=== PATIENT | male | born 1995 | race Caucasian/White ===

== ENCOUNTER 2022-12-17 17:10 | Inpatient (IN) | payer OTHER ==
[~2022-12-17] VITALS: Ht 172.7 cm; Wt 90.7 kg
[2022-12-17 17:37] VITALS: BP 160/84
[2022-12-17 18:18] LABS: BASOPHILS # (AUTO) 0.1 K/uL (0.00-0.22); BASOPHILS % (AUTO) 0.4 % (0.0-2.0); HEMATOCRIT 46.3 % (36-52); HEMOGLOBIN 15.7 g/dL (12.0-18.0); LYMPHOCYTES # (AUTO) 1.8 K/uL (2.0-11.5); LYMPHOCYTES % (AUTO) 8.2 % (20.5-51.1); MEAN CORPUSCULAR HEMOGLOBIN 30 pg (27-31); MEAN CORPUSCULAR HGB CONC 34 g/dL (33-37); MEAN CORPUSCULAR VOLUME 89.3 fL (80-94); MONOCYTES % (AUTO) 9.1 % (1.7-9.3); NEUTROPHILS % (AUTO) 82.3 % (42.2-75.2); PLATELET COUNT (AUTO) 273 K/uL (140-450); RED BLOOD CELL COUNT(AUTO) 5.19 MIL/uL (4.20-6.10); RED CELL DISTRIBUTION WIDTH 13.5 % (11.6-13.7); WHITE BLOOD COUNT (AUTO) 21.9 K/uL (4.8-10.8)
[2022-12-17 18:36] LABS: ANION GAP 15.2 (8-16); CARBON DIOXIDE 27.7 mmol/L (21-32); CREATININE 1.3 mg/dL (0.6-1.3); POTASSIUM 3.9 mmol/L (3.5-5.1); TOTAL BILIRUBIN 0.8 mg/dL (0.0-1.0)
[2022-12-17 19:51] LABS: APPEARANCE,URINE CLEAR (CLEAR); BILIRUBIN,URINE NEGATIVE (NEGATIVE); BLOOD, URINE SMALL (NEGATIVE); COLOR,URINE YELLOW (YELLOW); LEUKOCYTE ESTERASE ,URINE NEGATIVE (NEGATIVE); NITRITE, URINE NEGATIVE (NEGATIVE); UGLUCOSE NEGATIVE (NEGATIVE)
[2022-12-17 19:53] LABS: RBC,URINE 0-5 /HPF (0-5); WBC,URINE NONE SEEN /HPF (0-5)
--- NOTE | 2022-12-17 21:00 | NUR ---
Dr. Gaspar examining patient.
--- NOTE | 2022-12-17 21:09 | NUR ---
PT TAKEN TO BED 11
[2022-12-17] MEDS ORDERED: NACL 0.9% 1,000 ML IV ONE ×2 (21:10→22:55)
[2022-12-17] MEDS ORDERED: MORPHINE SULFATE 4 MG/ML SYR IVP ONE (21:10)
[2022-12-17] MEDS ORDERED: ONDANSETRON 4 MG/2 ML VIAL IVP ONE (21:10)
--- NOTE | 2022-12-17 21:16 | NUR ---
Patient BIB by family from home. C/O RUQ abdominal, right ribs pain x 1 month. Patient reported, had on and off right upper abdominal area, ribs pain for a month. Patient had a boxing a month ago, Yesterday went to [facility] [place], CT scan - normal (per patient).
--- NOTE | 2022-12-17 21:20 | NUR ---
Ultrasound at bedside.
[2022-12-17] MEDS ORDERED: ONDANSETRON 4 MG/2 ML VIAL IVP PRN (22:55)
[2022-12-17] MEDS ORDERED: metroNIDAZOLE 500 MG/NS PREMIX 100 ML IV ONE (22:55)
[2022-12-17] MEDS ORDERED: MORPHINE SULFATE 4 MG/ML SYR IVP PRN (22:55)
--- NOTE | 2022-12-17 22:56 | NUR ---
Dr. Moon explained treatment plans.
--- NOTE | 2022-12-17 23:02 | NUR ---
COVID-19 swabs collected and sent to lab.
[2022-12-18] MEDS ORDERED: cefTRIAXone 1,000 MG VIAL ONE (00:35)
--- NOTE | 2022-12-18 00:50 | NUR ---
Patient appears to be resting comfortably in bed. Vital Signs within normal limits. Respirations even and unlabored.
[2022-12-18] MEDS ORDERED: ACETAMINOPHEN 325 MG TAB PO PRN (01:55)
[2022-12-18] MEDS ORDERED: ZOLPIDEM 5 MG TAB PO PRN (01:55)
[2022-12-18] MEDS ORDERED: LORazepam 1 MG TAB PO PRN (01:55)
[2022-12-18] MEDS ORDERED: ONDANSETRON 4 MG/2 ML VIAL IVP PRN (01:55)
--- NOTE | 2022-12-18 02:12 | NUR ---
Patient will be admitted to care of Dr. Iglesias. Admited to TELE. Will go to room 121B. Belongings list completed. Report to ARPIT Espinoza.
[2022-12-18 02:35] VITALS: BP 146/95
--- NOTE | 2022-12-18 02:35 | NUR ---
PATIENT ADMITTED FROM ED, PATIENT IS ALERT AND ORIENTED X3, NO DISTRESS NOTED. PATIENT C/O RUQ PAIN X 1MONTH, THAT RADIATES TO EPIGASTRIC REGION, ADMITTING DIAGNOSIS IS ACUTE CHOLECYSTITIS. PATIENT ABLE TO TRANSFER SELF WITH STANDBY ASSIST. PATIENT IS CONTINENT, URINAL GIVEN. MRSA DONE. ORIENTED PERSON TO ROOM, RESTROOM AND USE OF CALL LIGHT. ALL SAFETY MEASURES IN PLACE.
[2022-12-18] MEDS: DEXT 5% /NACL 0.9% 1,000 ML IV SCH ×2 (03:25→14:49)
--- NOTE | 2022-12-18 03:45 | NUR ---
PATIENT C/O RUQ 8/10 PAIN, PRN MORPHINE GIVEN, BP 146/95.
--- NOTE | 2022-12-18 07:26 | NUR ---
receive the patient in rm 121B aox4 . admitting diagnosis of acute cholecystitis . will continue to monitor
--- NOTE | 2022-12-18 07:33 | NUR ---
ENDORSED PATIENT TO DAY NURSE FOR CONTINUITY CARE. PATIENT IN STABLE CONDITION.
[2022-12-18 08:00] VITALS: BP 146/95
--- NOTE | 2022-12-18 09:27 | NUR ---
PATIENT HAS BEEN SCREENED AND CATEGORIZED MODERATE NUTRITION RISK. PATIENT WILL BE SEEN WITHIN 3-5 DAYS OF ADMISSION. REVIEWED BY JIMMY RAND RD
[2022-12-18] MEDS: DOCUSATE SODIUM 100 MG GELCAP PO SCH (11:12)
[2022-12-18] MEDS: MORPHINE SULFATE 4 MG/ML SYR IVP PRN ×2 (11:12→19:11)
[2022-12-18] MEDS: metroNIDAZOLE 500 MG/NS PREMIX 100 ML IV SCH ×3 (12:02→23:56)
[2022-12-18 16:00] VITALS: BP 146/95
--- NOTE | 2022-12-18 18:24 | NUR ---
will endorse to shift boss rn for continuity
--- NOTE | 2022-12-18 18:26 | NUR ---
computed tomography of the abdomen was done
[2022-12-18 20:00] VITALS: BP 141/77
--- NOTE | 2022-12-18 20:30 | NUR ---
PATIENT AAOX4 WELL RESTED IN BED ON ROOM AIR. NO DISTRESS. BREATHING NORMAL NON LABORED. NO COMPLAINTS OF PAIN AT THIS TIME. CALL LIGHT IN REACH. PARENTS AT BEDSIDE. PATIENT WAS LIBERAL ARTS AND HUMANITIES CHAIR FOR CT ABDOMEN/PELVIS W/O CONTRAST.
--- NOTE | 2022-12-18 22:10 | NUR ---
DR PHILLIPS WAS NOTIFIED OF THE RESULTS OF CT ABDOMEN/PELVIS. AWAITING FOR REPLY.
--- NOTE | 2022-12-18 23:56 | NUR ---
FLAGYL ADMINISTERED ORDERED.
[2022-12-19] VITALS: BP 141/87
[2022-12-19] MEDS: MORPHINE SULFATE 4 MG/ML SYR IVP PRN ×4 (00:35→20:14)
[2022-12-19] MEDS: DEXT 5% /NACL 0.9% 1,000 ML IV SCH ×2 (02:55→15:43)
[2022-12-19 04:09] LABS: BASOPHILS # (AUTO) 0.1 K/uL (0.00-0.22); BASOPHILS % (AUTO) 0.9 % (0.0-2.0); EOSINOPHILS % (AUTO) 0.1 % (0.0-4.0); HEMOGLOBIN 14.5 g/dL (12.0-18.0); LYMPHOCYTES # (AUTO) 1.9 K/uL (2.0-11.5); LYMPHOCYTES % (AUTO) 11.8 % (20.5-51.1); MEAN CORPUSCULAR HEMOGLOBIN 30 pg (27-31); MEAN CORPUSCULAR HGB CONC 34 g/dL (33-37); MEAN CORPUSCULAR VOLUME 88.4 fL (80-94); MONOCYTES # (AUTO) 1.4 K/uL (0.8-1.0); MONOCYTES % (AUTO) 8.8 % (1.7-9.3); NEUTROPHILS # (AUTO) 12.7 K/uL (1.8-7.7); NEUTROPHILS % (AUTO) 78.4 % (42.2-75.2); PLATELET COUNT (AUTO) 261 K/uL (140-450); RED BLOOD CELL COUNT(AUTO) 4.86 MIL/uL (4.20-6.10); RED CELL DISTRIBUTION WIDTH 13.3 % (11.6-13.7); WHITE BLOOD COUNT (AUTO) 16.2 K/uL (4.8-10.8)
[2022-12-19 04:48] LABS: PROTHROMBIN TIME 10.9 secs (10.8-13.4)
[2022-12-19 05:12] LABS: ALBUMIN 3.3 g/dL (3.4-5.0); ANION GAP 12.6 (8-16); CARBON DIOXIDE 25.9 mmol/L (21-32); CREATININE 1.1 mg/dL (0.6-1.3); POTASSIUM 3.5 mmol/L (3.5-5.1); TOTAL BILIRUBIN 0.6 mg/dL (0.0-1.0)
--- NOTE | 2022-12-19 07:16 | NUR ---
ENDORSED PATIENT TO DAY SHIFT NURSE FOR CONTINUITY OF CARE. PRE OP CHECKLIST DONE.
--- NOTE | 2022-12-19 07:25 | NUR ---
flower picker by the operating nurse for laparoscopic cholecystectomy with possible cholangiogram . back around 11:30 am . tolerated the procedure .
--- NOTE | 2022-12-19 07:29 | NUR ---
receive the patient in room 121B aox4 with admitting diagnosis of cholecystitis
[2022-12-19] MEDS ORDERED: LIDOCAINE 1% 500 MG/50 ML VIAL ONE (07:35)
[2022-12-19] MEDS ORDERED: fentaNYL citrate 0.05 MG/ML VIAL ONE (07:35)
[2022-12-19] MEDS ORDERED: BUPIVACAINE-MPF/EPI 0.5% 30 ML VIAL INJ ONE (07:35)
[2022-12-19] MEDS ORDERED: SUCCINYLCHOLINE CHLORIDE 200 MG/10 ML VIAL IVP ONE (07:36)
[2022-12-19] MEDS ORDERED: PROPOFOL 200 MG/20 ML VIAL IV ONE ×2 (07:37→08:00)
[2022-12-19 08:00] VITALS: BP 135/69
[2022-12-19] MEDS ORDERED: fentaNYL citrate 0.05 MG/ML - 50mL vial IV ONE (08:00)
[2022-12-19] MEDS ORDERED: SUGAMMADEX SODIUM 200 MG/2 ML VIAL IV ONE ×2 (08:00→09:35)
[2022-12-19] MEDS ORDERED: ROCURONIUM 50 MG/5 ML VIAL IV ONE ×2 (08:00→08:35)
[2022-12-19] MEDS ORDERED: MEPERIDINE 25 MG/ML SYR ONE ×2 (08:00→09:39)
[2022-12-19] MEDS ORDERED: DEXAMETHASONE 4 MG/ML VIAL ONE ×2 (08:00→08:39)
[2022-12-19] MEDS ORDERED: SEVOFLURANE 250 ML BTL INH ONE (08:00)
[2022-12-19] MEDS ORDERED: ONDANSETRON 4 MG/2 ML VIAL ONE (08:39)
[2022-12-19] MEDS ORDERED: ePHEDrine 50 MG/ML VIAL ONE (08:57)
[2022-12-19] MEDS ORDERED: diphenhydrAMINE 50 MG/ML VIAL IVP PRN (09:55)
[2022-12-19] MEDS ORDERED: MEPERIDINE 25 MG/ML SYR IVP PRN (09:55)
[2022-12-19] MEDS: LACTATED RINGERS 1,000 ML IV SCH ×2 (09:55→18:15)
[2022-12-19] MEDS ORDERED: ONDANSETRON 4 MG/2 ML VIAL IVP PRN (09:55)
[2022-12-19] MEDS ORDERED: HYDROmorphone 1 MG/ML AMP IVP PRN (09:55)
--- NOTE | 2022-12-19 11:00 | NUR ---
DC PLANNING ASSESSMENT COMPLETE SEE ASSESSMENT FOR DETAILS PT REPORTS DC PLAN IS TO RETURN HOME WITH HIS MOTHER AND/OR FATHER PROVIDING TRANSPORTATION, WHEN MEDICALLY STABLE. SW INQUIRED ON RESOURCES NEEDED, PT DECLINED. Addendum: 12/20/22 at 1418 by Jonathan Luz SS Amended: Links added.
--- NOTE | 2022-12-19 12:27 | NUR ---
still with clear liquid diet
[2022-12-19] MEDS: DOCUSATE SODIUM 100 MG GELCAP PO SCH (13:24)
[2022-12-19] MEDS: metroNIDAZOLE 500 MG/NS PREMIX 100 ML IV SCH ×3 (13:27→23:50)
--- NOTE | 2022-12-19 15:28 | NUR ---
patient change from LR to D5 NS at 80mls /hr
[2022-12-19 16:00] VITALS: BP 124/70
--- NOTE | 2022-12-19 18:10 | NUR ---
patient was change to cardiac diet
--- NOTE | 2022-12-19 18:24 | NUR ---
will endorse to head tennis professional rn for continuity of care
--- NOTE | 2022-12-19 19:25 | NUR ---
RECEIVED PATIENT FROM AM NURSE FOR CONTINUITY OF CARE.PT IS STABLE
[2022-12-19 20:00] VITALS: BP 135/66
[2022-12-19] MEDS ORDERED: SIMETHICONE 80 MG TAB.CHEW PO SCH (22:00)
--- NOTE | 2022-12-20 | NUR ---
PATIENT ASLEEP,NO DISTRESS NOTED
[2022-12-20] MEDS: MORPHINE SULFATE 4 MG/ML SYR IVP PRN ×3 (00:26→20:41)
[2022-12-20] MEDS: HYDROcodone/APAP 5/325 MG 1 TAB TAB PO PRN ×2 (03:49→10:52)
[2022-12-20] MEDS: DEXT 5% /NACL 0.9% 1,000 ML IV SCH ×2 (03:50→16:27)
[2022-12-20 04:00] VITALS: BP 139/71
--- NOTE | 2022-12-20 07:05 | NUR ---
receive the patient from the shift commander rn in rm 121B admitting diagnosis of cholecystitis
[2022-12-20 07:31] LABS: BASOPHILS # (AUTO) 0.1 K/uL (0.00-0.22); BASOPHILS % (AUTO) 0.3 % (0.0-2.0); EOSINOPHILS % (AUTO) 0.3 % (0.0-4.0); HEMATOCRIT 39.8 % (36-52); HEMOGLOBIN 13.5 g/dL (12.0-18.0); LYMPHOCYTES # (AUTO) 2.2 K/uL (2.0-11.5); LYMPHOCYTES % (AUTO) 15.3 % (20.5-51.1); MEAN CORPUSCULAR HEMOGLOBIN 30 pg (27-31); MEAN CORPUSCULAR HGB CONC 34 g/dL (33-37); MEAN CORPUSCULAR VOLUME 88.7 fL (80-94); MONOCYTES # (AUTO) 1.1 K/uL (0.8-1.0); MONOCYTES % (AUTO) 7.4 % (1.7-9.3); NEUTROPHILS # (AUTO) 11.1 K/uL (1.8-7.7); NEUTROPHILS % (AUTO) 76.7 % (42.2-75.2); PLATELET COUNT (AUTO) 298 K/uL (140-450); RED BLOOD CELL COUNT(AUTO) 4.48 MIL/uL (4.20-6.10); RED CELL DISTRIBUTION WIDTH 13.2 % (11.6-13.7); WHITE BLOOD COUNT (AUTO) 14.4 K/uL (4.8-10.8)
[2022-12-20 07:37] VITALS: BP 139/71
[2022-12-20 07:45] LABS: ANION GAP 10.9 (8-16); CARBON DIOXIDE 26.5 mmol/L (21-32); POTASSIUM 3.4 mmol/L (3.5-5.1); TOTAL BILIRUBIN 0.4 mg/dL (0.0-1.0)
[2022-12-20] MEDS: metroNIDAZOLE 500 MG/NS PREMIX 100 ML IV SCH ×2 (08:41→16:24)
[2022-12-20] MEDS: SIMETHICONE 80 MG TAB.CHEW PO SCH ×3 (08:41→17:48)
[2022-12-20] MEDS: DOCUSATE SODIUM 100 MG GELCAP PO SCH (08:41)
[2022-12-20 12:00] VITALS: BP 133/67
[2022-12-20] MEDS ORDERED: KETO10TA2 PO (15:38)
[2022-12-20 16:00] VITALS: BP 139/93
--- NOTE | 2022-12-20 16:36 | NUR ---
notify the md about the discharge . md hold the discharge
--- NOTE | 2022-12-20 18:00 | NUR ---
chest xray was done
--- NOTE | 2022-12-20 18:33 | NUR ---
will endorse to night custodian rn for continuity of care . will hold the discharge due to constipation , sohortness of breath . chest xray has been done . will administer 2 L nasal canulla
--- NOTE | 2022-12-20 19:30 | NUR ---
RECEIVED PT FROM AM NURSE FOR CONTINUITY OF CARE.PT IS STABLE
[2022-12-20 20:00] VITALS: BP 126/68
--- NOTE | 2022-12-21 | NUR ---
PATIENT ASLEEP , HOB ELEVATED AT 45 DEGREES NO S/SX OF DISTRESS NOTED
[2022-12-21] MEDS: metroNIDAZOLE 500 MG/NS PREMIX 100 ML IV SCH ×2 (00:44→09:21)
[2022-12-21] MEDS: MORPHINE SULFATE 4 MG/ML SYR IVP PRN (01:21)
[2022-12-21 04:00] VITALS: BP 131/70
[2022-12-21] MEDS: DEXT 5% /NACL 0.9% 1,000 ML IV SCH (04:49)
[2022-12-21 07:09] LABS: BASOPHILS # (AUTO) 0.1 K/uL (0.00-0.22); BASOPHILS % (AUTO) 0.5 % (0.0-2.0); EOSINOPHILS # (AUTO) 0.1 K/uL (0-0.4); EOSINOPHILS % (AUTO) 1.2 % (0.0-4.0); HEMATOCRIT 40.2 % (36-52); HEMOGLOBIN 13.5 g/dL (12.0-18.0); LYMPHOCYTES # (AUTO) 2.4 K/uL (2.0-11.5); LYMPHOCYTES % (AUTO) 19.1 % (20.5-51.1); MEAN CORPUSCULAR HEMOGLOBIN 30 pg (27-31); MEAN CORPUSCULAR HGB CONC 34 g/dL (33-37); MEAN CORPUSCULAR VOLUME 89.3 fL (80-94); MONOCYTES % (AUTO) 7.6 % (1.7-9.3); NEUTROPHILS % (AUTO) 71.6 % (42.2-75.2); PLATELET COUNT (AUTO) 336 K/uL (140-450); RED CELL DISTRIBUTION WIDTH 13.4 % (11.6-13.7); WHITE BLOOD COUNT (AUTO) 12.5 K/uL (4.8-10.8)
--- NOTE | 2022-12-21 07:25 | NUR ---
receive the patient in rm 121B aox4 admitting diagnosis of cholecystitis . . probabaly discharge today . no shortness of breath . no pain . will continue to monitor
[2022-12-21 07:32] LABS: ALBUMIN 3.2 g/dL (3.4-5.0); ANION GAP 11.6 (8-16); POTASSIUM 3.6 mmol/L (3.5-5.1); TOTAL BILIRUBIN 0.4 mg/dL (0.0-1.0)
[2022-12-21 08:00] VITALS: BP 125/75
[2022-12-21] MEDS: SIMETHICONE 80 MG TAB.CHEW PO SCH ×2 (09:22→12:23)
[2022-12-21] MEDS: DOCUSATE SODIUM 100 MG GELCAP PO SCH (09:22)
[2022-12-21 12:00] VITALS: BP 128/78
--- NOTE | 2022-12-21 14:00 | NUR ---
md chou made some rounds . told the patinet and for discharge today . follow up with md sánchez in 2 weeks outpatient . discharge with pain medications . no chest pain . no shortness of breath . no constipation
--- NOTE | 2022-12-21 15:49 | NUR ---
12/21/22 RD INITIAL ASSESSMENT COMPLETED PLEASE REFER TO NUTRITION ASSESSMENT UNDER CARE ACTIVITY FOR ESTIMATED NUTRITIONAL NEEDS. 1. CONTINUE CARDIAC DIET TOLERATED 2. MONITOR GI SYMPTOMS 3. RD TO FOLLOW-UP 7 DAYS, LOW RISK REVIEWED BY JIMMY RAND RD
--- NOTE | 2022-12-21 16:19 | NUR ---
discharge the patient to home . with ketorolac prescription on patient pharmacy . will follow up md princess miner outpatient patient . patient in stable condition . no shortness of brearth . no complain of pain . all belongings given to the patient . patient was brought to the lobby in a waiting private car with the father
== END 2022-12-21 16:15 | disposition home or self-care (01) | DRG 853 ==
LOC: MED 17:10 → MMU 12-18 01:58 → MTU 12-18 02:18 → OBSVTOIN 12-18 15:17
PROVIDERS: ADMIT Hospitalist; ATTEND Hospitalist
PROC: 0FT44ZZ Resection of Gallbladder, Percutaneous Endoscopic Approach (ICD-10-PCS; principal; 2022-12-19 07:30)
DX: A41.9 Sepsis, unspecified organism (principal); J18.9 Pneumonia, unspecified organism; K80.00 Calculus of gallbladder with acute cholecystitis without obstruction; Z20.822 Contact with and (suspected) exposure to COVID-19; D72.829 Elevated white blood cell count, unspecified; N28.9 Disorder of kidney and ureter, unspecified
CPT/HCPCS: 36415; 71045; 76705; 80053; 81001; 82374; 85025; 85610; 85730; 86886; 86900; 86901; 87040; 87081; 88304; 93005; 96361; 96365; 96367; 96375; 99285; J0330; J0696; J1100; J2001; J2175; J2270; J2405; J2704; J3010; J3490; J7030; J7060; Q0092